=== PATIENT | female | born 1930 | race Caucasian/White ===

== ENCOUNTER → 2016-09-04 | Outpatient (CLI) | payer MEDICARE, BC ==
[~2016-09-04] MED LIST: ASPIRIN PO; AVALIDE 150-12.1 TAB PO; CRESTOR PO; EVISTA60 MG PO
--- NOTE | ~2016-09-04 | BD1 ---
[facility] A Service of [facility] & [facility] RADIOLOGY TEXT RESULTS PATIENT: KADIE GUTIERRES LOCATION: [facility] : 32 UNIT #: [id number] AGE: [address]: Bg Jackson MD SEX: F ORDER DR: [id number] [address] [address] [id number] O MR#: [id number] Acc #: [id number] NAME: KADIE GUTIERRES : 1930 SEX: F STUDY DATE/TIME: 09/04/2016 11:11 UNIT: SRAD ROOM: STUDY DESCRIPTION: Dexa Bone Dens 1+ Site Attending Physician: Bg Jackson M.D. Referring Physician: Bg Jackson M.D. Ordering Physician: Bg Jackson M.D. Primary Care Physician: Bg Jackson M.D. MEDICAL IMAGING REPORT This report is preliminary unless electronic signature is present. EXAM DXA scan 09/04/2016 HISTORY Status post menopause with no hormone replacement therapy. Osteopenia. Hyperthyroidism. Thyroid medication for 2 years, thyroxine. Smoking history for 20 years. FINDINGS Bone mineral density in the lumbar spine from L1-L4 was 0.916 g/cm2, which is 2.2 standard deviations below the mean when compared to the young adult reference population, which is characteristic of osteopenia. This is at the mean when compared to the age-matched population. Compared with 08/06/2014, there has been a decrease in bone mineral density in the lumbar spine of 2.8%. Bone mineral density in the left femoral neck was 0.797 g/cm2, which is 1.7 standard deviations below the mean when compared to the young adult reference population, which is characteristic of osteopenia. This is 0.9 standard deviation above the mean when compared to the age-matched population. Compared with 08/06/2014, there has been a decrease in bone mineral density in the left hip of 8.5%. Bone mineral density in the right femoral neck was 0.842 g/cm2, which is 1.4 standard deviations below the mean when compared to the young adult reference population, which is characteristic of osteopenia. This is 1.2 standard deviations above the mean when compared to the age-matched population. Compared with 08/06/2014, there has been a decrease in bone mineral density in the right hip of 4.5%. IMPRESSION Bone mineral density in the lumbar spine characteristic of osteopenia and within the hips bilaterally also characteristic of osteopenia. Compared [facility] A Service of [facility] RADIOLOGY TEXT RESULTS PATIENT: KADIE GUTIERRES LOCATION: [facility] : 32 UNIT #: [id number] AGE: [address]: Bg Jackson MD SEX: F ORDER DR: with 08/06/2014, there has been a decrease in bone mineral density in the lumbar spine and the hips bilaterally. Dictated by... Gee Win M.D. THIS IS AN ELECTRONICALLY VERIFIED REPORT Gee Win M.D. at 09/04/2016 6:25 PM Yasmin TD: 09/04/2016 17:26 JOB #: [id number] MEDICAL IMAGING REPORT Page 1 of 1
== END | disposition home or self-care (01) ==
LOC: SRAD 11:00
DX: M85.80 Other specified disorders of bone density and structure, unspecified site (principal); Z78.0 Asymptomatic menopausal state
CPT/HCPCS: 77080